=== PATIENT | male | born 1960 | race Caucasian/White ===

== ENCOUNTER 2020-02-15 04:47 | Emergency (ER) | payer BC, OTHER ==
[~2020-02-15] VITALS: Ht 190.5 cm; Wt 124.7 kg
[2020-02-15 05:16] LABS: BASOPHILS # (AUTO) 0.1 (0.0-0.1); BASOPHILS % 0.8 % (0.0-1.0); EOSINOPHILS # (AUTO) 0.4 (0.0-0.4); EOSINOPHILS % 5.5 % (0.0-6.0); HEMATOCRIT 47.9 % (38.2-49.6); LYMPHOCYTES # (AUTO) 2.2 (1.0-3.2); LYMPHOCYTES % 29.7 % (18.0-39.1); MEAN CORPUSCULAR HGB CONC 33.4 g/dL (31-35); MEAN CORPUSCULAR VOLUME 86.8 fL (81-99); MONOCYTES # (AUTO) 0.6 (0.2-0.8); MONOCYTES % 7.9 % (4.4-11.3); NEUTROPHILS # (AUTO) 4.2 (2.1-6.9); NEUTROPHILS % 55.7 % (38.7-80.0); PLATELET COUNT 207 x10e3/uL (140-360); RED BLOOD COUNT 5.52 x10e6/uL (4.3-5.7); RED CELL DISTRIBUTION WIDTH 14.5 % (11.7-14.4)
[2020-02-15 05:34] LABS: ALANINE AMINOTRANSFERASE 40 IU/L (0-55); ALBUMIN 3.9 g/dL (3.5-5.0); ALBUMIN/GLOBULIN RATIO 1.3 (0.8-2.0); ALKALINE PHOSPHATASE 78 IU/L (40-150); ANION GAP 14.9 mmol/L (8-16); BLOOD UREA NITROGEN 20 mg/dL (7-26); BUN/CREATININE RATIO 17 (6-25); CALCIUM 9.2 mg/dL (8.4-10.2); CARBON DIOXIDE 24 mmol/L (22-29); CHLORIDE 106 mmol/L (98-107); CREATINE KINASE 89 IU/L (30-200); CREATININE, SERUM 1.21 mg/dL (0.72-1.25); EST GLOMERULAR FILTRATION RATE > 60 ML/MIN (60-); GLUCOSE 109 mg/dL (74-118); POTASSIUM 3.9 mmol/L (3.5-5.1); SODIUM 141 mmol/L (136-145)
[2020-02-15] MEDS: NITROGLYCERIN 2% OINT 1 GM PKT TOP ONE (05:43)
--- NOTE | 2020-02-15 05:53 | Emergency Department Note ---
History of Present Illnes History of Present Illness Chief Complaint: Respiratory History of Present Illness This is a 59 year old male arrives to the ED with 7-10 days of shortn ess of breath worse when laying flat. Patient states symptoms are worsening, denies any cough, fever. Patient c/o shortness of breath for about one week. Patient states shortness of breath is worse when laying down. Patient states he has not been tested for COVID-19. States he has not seen a PCP in over 5 years. No respiratory distress noted. Historian: Patient Arrival Mode: Car Onset (how long ago): week(s) Duration (how long): week(s) Progression: unchanged Chronicity: new Context: Denies recent illness Relieving factors: none Exacerbating factors: none Past Medical/Family History Physician Review I have reviewed the patient's past medical and family history. Any updates have been documented here. Past Medical History Recent Fever: No Clinical Suspicion of Infectio: No New/Unexplained Change in Ment: No Review of Systems Review of Systems Constitutional: Reports no symptoms EENTM: Reports no symptoms Cardiovascular: Reports no symptoms Respiratory: Reports as per HPI, Reports dyspnea Gastrointestinal: Reports no symptoms Genitourinary: Reports no symptoms Musculoskeletal: Reports no symptoms Integumentary: Reports no symptoms Neurological: Reports no symptoms Psychological: Reports no symptoms Endocrine: Reports no symptoms Hematological/Lymphatic: Reports no symptoms Physical Exam Related Data Allergies: Coded Allergies: No Known Drug Allergies (Verified Allergy, Mild, 10/02/09) Triage Vital Signs Vital Signs Date Time Temp Pulse Resp B/P (MAP) Pulse Ox O2 Delivery O2 Flow Rate FiO2 02/15/20 04:52 97.8 94 22 216/128 96 Room Air Vital signs reviewed: Yes Physical Exam CONSTITUTIONAL Constitutional: Present well-developed, Present well-nourished HENT HENT: Present normocephalic, Present atraumatic, Present oropharynx clear/moist, Present nose normal HENT L/R: Present left ext ear normal, Present right ext ear normal EYES Eyes: Reports PERRL, Reports conjunctivae normal NECK Neck: Present ROM normal PULMONARY Pulmonary: Present effort normal, Present breath sounds normal, Present respiratory distress CARDIOVASCULAR Cardiovascular: Present regular rhythm, Present heart sounds normal, Present capillary refill normal, Present normal rate GASTROINTESTINAL Abdominal: Present soft, Present nontender, Present bowel sounds normal GENITOURINARY Genitourinary: Present exam deferred SKIN Skin: Present warm, Present dry MUSCULOSKELETAL Musculoskeletal: Present ROM normal NEUROLOGICAL Neurological: Present alert, Present oriented x 3, Present no gross motor or sensory deficits PSYCHOLOGICAL Psychological: Present mood/affect normal, Present judgement normal Results Laboratory Lab results reviewed: Yes Imaging Imaging results reviewed: Yes Procedures 12 Lead ECG Interpretation ECG Interpretation : ECG: ECG 2 Prior ECG tracings: reviewed Rhythm: sinus rhythm Ectopy: PVC's Rate: normal QRS axis: right ST segments normal: Yes T waves normal: Yes Clinical Impression: abnormal ECG Assessment & Plan Medical Decision Making MDM This patient presents with dyspnea, most likely secondary to congestive heart failure. Differential diagnosis includes COPD, CHF, ACS, viral syndrome. Presentation not consistent with acute cardiac etiologies to include ACS, CHF, pericardial effusion / tamponade . Presentation not consistent with acute respiratory etiologies to include acute PE (Wells low risk), pneumothorax , asthma, COPD exacerbation, allergic etiologies, or infectious etiologies such as PNA. Presentation also not consistent with non-cardiopulmonary causes to include toxidromes, metabolic etiologies such as acidemia or electrolyte derangements, sepsis, neurologic causes (i.e. demyelinating diseases). Patient hypertensive on arrival, oxygen saturation 100% on room air, Plan: supplemental O2 as needed, CXR, labs, troponin, close hemodynamic monitoring, serial reassessment Patient did not want be admitted to the hospital, spoke with cardiology on-call and made an appointment for the patient tomorrow 9 AM to be seen in his office. Patient discharged on an ARB and hydrochlorothiazide. Assessment & Plan Final Impression: (1) Acute exacerbation of CHF (congestive heart failure) (2) Hypertensive urgency Depart Disposition: HOME, SELF-CARE Last Vital Signs Date Time Temp Pulse Resp B/P (MAP) Pulse Ox O2 Delivery O2 Flow Rate FiO2 02/15/20 04:52 97.8 94 22 216/128 96 Room Air Home Meds Active Scripts Furosemide (LASIX) 40 Mg Tablet, 40 MG PO DAILY, #30 TAB Prov:CHELY PFEIFFER DO 02/15/20 Olmesartan/Hydrochlorothiazide (Olmesartan-Hctz 40-25 mg Tab) 1 Each Tablet, 1 TAB PO DAILY, #30 Prov:CHELY PFEIFFER DO 02/15/20 CHELY PFEIFFER DO Feb 15, 2020 05:53
[2020-02-15] MEDS ORDERED: ASPIRIN 81 MG CHEW TAB PO ONE (06:15)
[2020-02-15] MEDS: FUROSEMIDE INJ 10 MG/ML 4 ML VIAL IV ONE (06:15)
[2020-02-15 06:47] VITALS: BP 189/115
[2020-02-15] MEDS ORDERED: OLMESARTAN-HCT1 EAC2 PO (06:47)
[2020-02-15] MEDS ORDERED: LASIX40 MG PO (06:55)
--- NOTE | 2020-02-15 07:22 | Diagnostic Imaging Report ---
EXAMINATION: CHEST SINGLE (PORTABLE) INDICATION: sob COMPARISON: None FINDINGS: The heart is mildly enlarged. There is a small left pleural effusion. Prominent central pulmonary vasculature. Indeterminate 3 cm density with partially well-defined margins projects over the right heart border. Otherwise, no definite consolidation. No pneumothorax. IMPRESSION: 1. Indeterminate 3 cm density with partially well-defined margins projects over the right heart border. Recommend CT chest with contrast for further evaluation. 2. Mild cardiomegaly with pulmonary vascular congestion. No overt edema. Small left pleural effusion. Results discussed with Dr. Resendiz on 02/15/2020 at 7:15 AM. Signed by: Elliot Mayen MD on 02/15/2020 7:18 AM
== END 2020-02-15 07:03 | disposition home or self-care (01) ==
LOC: ER 04:59
DX: I50.9 Heart failure, unspecified (principal); R06.00 Dyspnea, unspecified; I16.0 Hypertensive urgency; R94.31 Abnormal electrocardiogram [ECG] [EKG]
CPT/HCPCS: 36415; 71045; 80053; 82550; 82553; 83880; 84484; 85025; 93005; 99284; J1940; U0002

== ENCOUNTER 2022-08-18 22:29 | Inpatient (IN) | payer BC ==
[~2022-08-18] VITALS: Ht 190.5 cm; Wt 130.2 kg
[~2022-08-18 22:29] MED LIST: LASIX40 MG PO; OLMESARTAN-HCT1 EAC2 PO
[2022-08-19] VITALS (11 sets, daily range): BP systolic 103–189; BP diastolic 56–161; PULSE 66–107; RESP 17–22; TEMP 97.7–98.5; O2SAT 94–100
[2022-08-19] MEDS ORDERED: DILTIAZEM HCL 5 MG/ML 5 ML VIAL IV STA (00:10)
[2022-08-19] MEDS ORDERED: DILTIAZEM HCL VIAL 5 ML ONE (00:18)
[2022-08-19] MEDS ORDERED: ASPIRIN 81 MG CHEW TAB PO ONE (01:00)
[2022-08-19] MEDS ORDERED: SODIUM CHLORIDE FLUSH 10 ML SYR INJ PRN (01:00)
[2022-08-19] MEDS ORDERED: ENOXAPARIN SODIUM INJ 100 MG/ML SYR SC STA (01:07)
[2022-08-19] MEDS ORDERED: ASPIRIN 81 MG CHEW TAB ONE (01:31)
[2022-08-19] MEDS ORDERED: ENOXAPARIN SODIUM INJ 100 MG/ML SYR SC ONE (01:31)
[2022-08-19] MEDS: METOPROLOL SUCCINATE 50 MG TAB XL PO SCH ×2 (05:40→11:41)
[2022-08-19] MEDS ORDERED: HYDRALAZINE HCL 20 MG/ML VIAL IV STA (08:14)
[2022-08-19] MEDS: NIFEDIPINE CR 30 MG TAB PO SCH (08:34)
[2022-08-19] MEDS ORDERED: LIDOCAINE 4% PATCH TP PRN (09:15)
[2022-08-19] MEDS ORDERED: ACETAMINOPHEN 325 MG TAB PO PRN (09:15)
[2022-08-19] MEDS ORDERED: DEXTROSE 50% SYRINGE 50 ML IV PRN (09:15)
[2022-08-19] MEDS ORDERED: DOCUSATE SODIUM 100 MG CAP PO PRN (09:15)
[2022-08-19] MEDS ORDERED: BENZONATATE 100 MG CAP PO PRN (09:15)
[2022-08-19] MEDS ORDERED: ALBUTEROL/IPRATROPIUM 3 ML NEB NEB PRN (09:15)
[2022-08-19] MEDS ORDERED: POTASSIUM CHLORIDE 20 MEQ TAB CR PO PRN (09:15)
[2022-08-19] MEDS ORDERED: HYDRALAZINE HCL 20 MG/ML VIAL IV PRN (09:15)
[2022-08-19] MEDS ORDERED: ONDANSETRON HCL INJ 2MG/ML 2ML 2 MG/ML VIAL IV PRN (09:15)
[2022-08-19] MEDS ORDERED: DIPHENHYDRAMINE HCL 25 MG CAP PO PRN (09:15)
[2022-08-19] MEDS ORDERED: SIMETHICONE 80 MG CHEW PO PRN (09:15)
[2022-08-19] MEDS ORDERED: TRAMADOL HCL 50 MG TAB PO PRN (09:15)
[2022-08-19] MEDS: PANTOPRAZOLE SOD 40 MG TABEC PO SCH (11:41)
[2022-08-19] MEDS: ENOXAPARIN SODIUM INJ 100 MG/ML SYR SC SCH ×2 (15:51→20:19)
[2022-08-19] MEDS: FUROSEMIDE INJ 10 MG/ML 2 ML VIAL IV SCH (17:44)
[2022-08-19] MEDS ORDERED: MELATONIN 5 MG TABLET PO PRN (21:00)
[2022-08-19] MEDS ORDERED: FUROSEMIDE INJ 10 MG/ML 4 ML VIAL IV SCH (21:00)
[2022-08-20] VITALS (10 sets, daily range): BP systolic 112–143; BP diastolic 65–96; PULSE 63–69; RESP 18–20; TEMP 97.2–98.3; O2SAT 95–99
[2022-08-20 07:03] LABS: BASOPHILS # (AUTO) 0.1 (0.0-0.1); BASOPHILS % 0.8 % (0.0-1.0); EOSINOPHILS # (AUTO) 0.3 (0.0-0.4); EOSINOPHILS % 3.5 % (0.0-6.0); HEMATOCRIT 45.2 % (38.2-49.6); HEMOGLOBIN 15.8 g/dL (14.0-18.0); LYMPHOCYTES % 26.2 % (18.0-39.1); MEAN CORPUSCULAR VOLUME 85.9 fL (81-99); MONOCYTES # (AUTO) 0.7 (0.2-0.8); MONOCYTES % 8.6 % (4.4-11.3); NEUTROPHILS # (AUTO) 4.7 (2.1-6.9); NEUTROPHILS % 60.6 % (38.7-80.0); PLATELET COUNT 227 x10e3/uL (140-360); RED BLOOD COUNT 5.26 x10e6/uL (4.3-5.7); RED CELL DISTRIBUTION WIDTH 13.8 % (11.7-14.4)
[2022-08-20 07:12] LABS: ANION GAP 15.3 mmol/L (8-16); CALCIUM 8.9 mg/dL (8.4-10.2); CHOL/HDL RATIO 4.3 (3.9-4.7); CREATININE, SERUM 1.11 mg/dL (0.72-1.25); MAGNESIUM 1.8 MG/DL (1.3-2.1); PHOSPHORUS 3.1 MG/DL (2.3-4.7); POTASSIUM 3.3 mmol/L (3.5-5.1)
[2022-08-20 07:36] LABS: THYROID STIMULATING HORMONE 0.045 uIU/mL (0.350-4.940)
[2022-08-20] MEDS: NIFEDIPINE CR 30 MG TAB PO SCH (09:26)
[2022-08-20] MEDS: PANTOPRAZOLE SOD 40 MG TABEC PO SCH (09:26)
[2022-08-20] MEDS: FUROSEMIDE INJ 10 MG/ML 2 ML VIAL IV SCH ×3 (09:27→21:00)
[2022-08-20] MEDS: ENOXAPARIN SODIUM INJ 100 MG/ML SYR SC SCH (09:27)
[2022-08-20] MEDS: METOPROLOL SUCCINATE 50 MG TAB XL PO SCH (09:27)
[2022-08-20] MEDS ORDERED: METOLAZONE 5 MG TAB PO ONE (10:45)
[2022-08-20] MEDS: APIXABAN 5 MG TABLET PO SCH (20:59)
[2022-08-21 00:13] VITALS: BP 138/92; PULSE 64; RESP 18; TEMP 97.6; O2SAT 100
[2022-08-21 04:19] VITALS: BP 130/89; PULSE 73; RESP 18; TEMP 97.7; O2SAT 97
[2022-08-21 06:06] LABS: CALCIUM 9.1 mg/dL (8.4-10.2); CREATININE, SERUM 1.51 mg/dL (0.72-1.25)
[2022-08-21] MEDS: FUROSEMIDE INJ 10 MG/ML 2 ML VIAL IV SCH ×2 (06:18→14:31)
[2022-08-21 06:43] VITALS: PULSE 71; RESP 20; O2SAT 96
[2022-08-21 08:01] VITALS: BP 140/84; PULSE 71; RESP 22; TEMP 97.9; O2SAT 95
[2022-08-21] MEDS: APIXABAN 5 MG TABLET PO SCH (08:45)
[2022-08-21] MEDS: METOPROLOL SUCCINATE 50 MG TAB XL PO SCH (08:46)
[2022-08-21] MEDS: PANTOPRAZOLE SOD 40 MG TABEC PO SCH (08:47)
[2022-08-21] MEDS: NIFEDIPINE CR 30 MG TAB PO SCH (08:48)
[2022-08-21 08:51] VITALS: BP 140/84; PULSE 71; RESP 22; TEMP 97.9; O2SAT 95
[2022-08-21 12:11] VITALS: BP 106/79; PULSE 68; RESP 21; TEMP 98.2; O2SAT 96
[2022-08-21] MEDS ORDERED: ONDANSETRON HCL 4 MG ORAL DISINTEGRATING TAB PO PRN (15:15)
== END 2022-08-21 15:50 | disposition home or self-care (01) | DRG 291 ==
LOC: FSED 22:50 → ERHOLD 08-19 01:01 → MED/SURG3 08-19 02:54 → OBSVTOIN 08-21 08:03
PROVIDERS: ADMIT Internal Medicine; ATTEND Internal Medicine
DX: I11.0 Hypertensive heart disease with heart failure (principal); I50.43 Acute on chronic combined systolic (congestive) and diastolic (congestive) heart failure; I48.92 Unspecified atrial flutter; E66.01 Morbid (severe) obesity due to excess calories; R91.1 Solitary pulmonary nodule; M25.78 Osteophyte, vertebrae; K76.0 Fatty (change of) liver, not elsewhere classified; Z91.198 Patient's noncompliance with other medical treatment and regimen for other reason; Z68.35 Body mass index [BMI] 35.0-35.9, adult
CPT/HCPCS: 36415; 71046; 71250; 80048; 80053; 80061; 82550; 82553; 83036; 83735; 83880; 84100; 84443; 84484; 85025; 85379; 93005; 93306; 94799; 99284; G0378; J1650; J1940